=== PATIENT | female | born 1960 | race Caucasian/White ===

== ENCOUNTER 2022-09-03 17:15 | Inpatient (IN) | payer SELFPAY ==
[2022-09-03] MEDS ORDERED: Pantoprazole 40 MG VIAL ONE (17:36)
[2022-09-03] MEDS ORDERED: Ondansetron PF 4 MG/2 ML Vial ONE (17:36)
[2022-09-03 18:03] LABS: #Monocytes 0.7 thou/uL (0.11-0.59); #Neutrophils 7.7 thou/uL (1.40-6.50); %Basophils 0.3 % (0.0-1.0); %Eosinophils 0.3 % (0.0-10.0); %Lymphocytes 18.6 % (21.0-51.0); %Monocytes 6.8 % (0.0-10.0); %Neutrophils 73.7 % (42.0-75.0); Hemoglobin 10.8 g/dL (12.0-16.0); Mean Corpuscular HGB CONC 32.9 g/dL (32.0-36.0); Mean Corpuscular Hemoglobin 32.7 pg (27.0-31.0); Mean Corpuscular Volume 99.4 fl (78.0-98.0); Mean Platelet Volume 9.2 fL (7.4-10.4); Platelet Count 353 10x3/uL (130-400); RBC Distribution Width 12.3 % (11.5-14.5); White Blood Cell (WBC) Count 10.4 10x3/uL (4.8-10.8)
[2022-09-03 18:21] LABS: PTT 27.6 sec (22.9-36.1); Prothrombin Time 13.2 sec (12.0-14.7)
[2022-09-03 18:26] LABS: ALT (SGPT) 37 U/L (8-55); AST (SGOT) 60 U/L (5-34); Albumin 3.7 g/dL (3.5-5.0); Alkaline Phosphatase 59 U/L (40-110); Anion Gap 11 mmol/L (10-20); BUN (Urea Nitrogen) 13 mg/dL (9.8-20.1); Bilirubin, Total 0.4 mg/dL (0.2-1.2); Calc. Creatinine Clearance 0 mL/min (70-130); Calcium 8.7 mg/dL (7.8-10.44); Carbon Dioxide 23 mmol/L (22-29); Chloride 107 mmol/L (98-107); Estimated GFR 87; Globulin 2.5 g/dL (2.4-3.5); Glucose 108 mg/dL (70-105); Lipase 60 U/L (8-78); Potassium 3.4 mmol/L (3.5-5.1); Protein, Total 6.2 g/dL (6.0-8.3); Sodium 138 mmol/L (136-145)
[2022-09-03] MEDS ORDERED: Morphine 4 MG/ML VIAL ONE (20:10)
[2022-09-03] MEDS ORDERED: Piperacillin/Tazobactam 4.5 GM VIAL ONE (20:10)
[2022-09-03] MEDS ORDERED: Glucagon 1 MG/ML KIT IM PRN (20:16)
[2022-09-03] MEDS ORDERED: Morphine 2 MG/ML VIAL SLOW IVP PRN (20:16)
[2022-09-03] MEDS ORDERED: Dextrose 50% Abboject 50 ML SYRINGE SLOW IVP PRN (20:16)
[2022-09-03] MEDS ORDERED: traMADol HCl 50 MG TAB PO PRN (20:16)
[2022-09-03] MEDS ORDERED: TETANUS, DIPHTHERIA TOX,ADULT (TDVAX) 0.5 ML VIAL IM ONE (20:16)
[2022-09-03] MEDS ORDERED: Ipratropium/Albuterol 3 ML NEB NEB PRN (20:16)
[2022-09-03] MEDS ORDERED: Dextrose 5% in Water 1,000 ML IV PRN (20:16)
[2022-09-03] MEDS ORDERED: Ondansetron PF 4 MG/2 ML Vial IVP PRN (20:16)
[2022-09-03] MEDS ORDERED: TETANUS AND DIPHTHERIA TOX/PF 0.5 ML DISP.SYRIN IM SCH (20:30)
[2022-09-03 23:19] VITALS: BMI 26.9
[2022-09-04] MEDS: Famotidine 20 MG TAB PO SCH ×2 (00:04→08:21)
[2022-09-04] MEDS: Sodium Chloride 0.9% 1,000 ML IV SCH ×2 (00:05→05:42)
[2022-09-04] MEDS ORDERED: Levothyroxine Sodium 75 MCG TAB PO SCH (06:00)
[2022-09-04 07:11] LABS: #Eosinphils 0.3 thou/uL (0.0-0.7); #Monocytes 0.8 thou/uL (0.11-0.59); #Neutrophils 4.4 thou/uL (1.40-6.50); %Basophils 0.4 % (0.0-1.0); %Eosinophils 3.4 % (0.0-10.0); %Lymphocytes 23.6 % (21.0-51.0); %Monocytes 11.3 % (0.0-10.0); %Neutrophils 61.2 % (42.0-75.0); Hemoglobin 9.8 g/dL (12.0-16.0); Mean Corpuscular HGB CONC 32.7 g/dL (32.0-36.0); Mean Corpuscular Hemoglobin 32.7 pg (27.0-31.0); Mean Platelet Volume 9.5 fL (7.4-10.4); Platelet Count 329 10x3/uL (130-400); RBC Distribution Width 12.7 % (11.5-14.5); White Blood Cell (WBC) Count 7.3 10x3/uL (4.8-10.8)
[2022-09-04 07:35] LABS: Anion Gap 9 mmol/L (10-20); BUN (Urea Nitrogen) 12 mg/dL (9.8-20.1); Calc. Creatinine Clearance 74 mL/min (70-130); Calcium 8.3 mg/dL (7.8-10.44); Carbon Dioxide 23 mmol/L (22-29); Chloride 110 mmol/L (98-107); Estimated GFR 78; Glucose 97 mg/dL (70-105); Potassium 3.4 mmol/L (3.5-5.1); Sodium 139 mmol/L (136-145)
[2022-09-04] MEDS ORDERED: Ketorolac Tromethamine 30 MG/ML VIAL IVP SCH (09:00)
[2022-09-04] MEDS ORDERED: LevoFLOXacin 500 mg/D5W 500 MG in Premix Bag 1 BAG IVPB SCH (09:00)
[2022-09-04] MEDS ORDERED: Lisinopril 20 MG TAB PO SCH (09:00)
[2022-09-04] MEDS ORDERED: ALPRAZolam 1 MG TAB PO SCH (09:00)
[2022-09-04] MEDS ORDERED: Bupropion 150 MG XL TAB PO SCH (09:00)
[2022-09-04] MEDS ORDERED: Glucagon 1 MG/ML KIT ONE (09:04)
[2022-09-04] MEDS ORDERED: Iopamidol 0 ML ONE (09:04)
[2022-09-04] MEDS ORDERED: EPINEPHrine 1 MG/ML AMP ONE (09:04)
[2022-09-04] MEDS ORDERED: Bupivacaine 0.25% HCL 30 ML VIAL ONE (09:04)
[2022-09-04] MEDS ORDERED: Fentanyl 250 MCG/5 ML VIAL ONE (09:09)
[2022-09-04] MEDS ORDERED: Scopolamine 1.5 mg/72 hour Patch TOP SCH (09:15)
[2022-09-04] MEDS ORDERED: fentaNYL PF 100 MCG/2 ML SYRINGE ONE (09:32)
[2022-09-04] MEDS ORDERED: HYDROmorphone 0.5 MG/0.5 ML SYRINGE ONE (09:33)
[2022-09-04] MEDS ORDERED: SUGAMMADEX SODIUM 200 MG/2 ML VIAL ONE (09:33)
[2022-09-04] MEDS ORDERED: Scopolamine 1.5 mg/72 hour Patch ONE (09:46)
[2022-09-04] MEDS ORDERED: Ondansetron PF 4 MG/2 ML Vial ONE (10:00)
[2022-09-04] MEDS ORDERED: Succinylcholine Chloride 100 MG/5 ML SYRINGE FS ONE (10:00)
[2022-09-04] MEDS ORDERED: Dexamethasone 20 MG/5 ML VIAL ONE (10:00)
[2022-09-04] MEDS ORDERED: Metoclopramide HCl 10 MG/2 ML VIAL ONE (10:00)
[2022-09-04] MEDS ORDERED: Lidocaine 1% PF 5 ML VIAL ONE (10:00)
[2022-09-04] MEDS ORDERED: Ketorolac Tromethamine 30 MG/ML VIAL ONE (10:00)
[2022-09-04] MEDS ORDERED: PROPOFOL 200 MG/20 ML VIAL ONE (10:00)
[2022-09-04] MEDS ORDERED: Rocuronium Bromide 10 MG/ML (10ML VIAL) ONE (10:00)
[2022-09-04] MEDS ORDERED: NEOSTIGMINE 3 MG/3 ML SYR 3 MG/3 ML SYRINGE ONE (10:00)
[2022-09-04] MEDS ORDERED: PHENYLEPHRINE-NS 100 MCG/ML 10 ML SYRINGE ONE (10:00)
[2022-09-04] MEDS ORDERED: HYDROmorphone 2 MG/ML VIAL SLOW IVP PRN (10:28)
[2022-09-04] MEDS ORDERED: Meperidine HCl/PF 25 MG/ML VIAL SLOW IVP PRN (10:28)
[2022-09-04] MEDS ORDERED: Ondansetron HCl/PF 4 MG/2 ML Vial IVP PRN (10:28)
[2022-09-04] MEDS ORDERED: Promethazine HCl 25 MG/ML VIAL IM PRN (10:28)
[2022-09-04] MEDS ORDERED: Morphine Sulfate 2 MG/ML SYRINGE SLOW IVP PRN (10:28)
[2022-09-04] MEDS ORDERED: fentaNYL 50 mcg/mL 1 mL Vial ONE (11:04)
[2022-09-04] MEDS ORDERED: Acetaminophen 500 MG TAB PO PRN (11:05)
[2022-09-04] MEDS ORDERED: Ibuprofen 600 MG TAB PO PRN (11:05)
[2022-09-04] MEDS ORDERED: traMADol HCl 50 MG TAB PO PRN (11:06)
[2022-09-04 11:52] VITALS: BP 101/56; TEMP 97.2
[2022-09-04] MEDS ORDERED: Morphine 2 MG/ML VIAL SLOW IVP SCH (14:30)
== END 2022-09-04 16:29 | disposition home or self-care (01) | DRG 419 ==
LOC: ERS 17:15 → SURG A 20:16
PROVIDERS: ADMIT Surgery; ATTEND Surgery
PROC: 0FT44ZZ Resection of Gallbladder, Percutaneous Endoscopic Approach (ICD-10-PCS; principal; 2022-09-04)
DX: K80.12 Calculus of gallbladder with acute and chronic cholecystitis without obstruction (principal); E03.9 Hypothyroidism, unspecified; I10 Essential (primary) hypertension; F41.9 Anxiety disorder, unspecified; F32.A Depression, unspecified; F17.210 Nicotine dependence, cigarettes, uncomplicated; Z90.710 Acquired absence of both cervix and uterus; Z79.899 Other long term (current) drug therapy
CPT/HCPCS: 36415; 36416; 76705; 80048; 83690; 85025; 85610; 85730; 88304; 90714; 96365; 96375; C1889; C9113; J0171; J1100; J1170; J1611; J1885; J2270; J2405; J2543; J2704; J2765; J3010; J7050; Q9967; S0020